=== PATIENT | male | born 1970 | race Two or more races ===

== ENCOUNTER 2023-04-28 18:50 | Emergency (ER) | payer BC ==
[2023-04-28] MEDS ORDERED: Morphine 4 MG/ML VIAL ONE (20:27)
[2023-04-28] MEDS ORDERED: CEFAZOLIN 2 GM VIAL ONE (20:28)
[2023-04-28] MEDS ORDERED: Ondansetron PF 4 MG/2 ML Vial ONE (20:28)
[2023-04-28] MEDS ORDERED: Lidocaine 1% w/Epinephrine 1:200K 30 ML VIAL ONE (20:59)
== END 2023-04-28 22:43 | disposition home or self-care (01) ==
LOC: CSHERS 18:50
DX: S01.81XA Laceration without foreign body of other part of head, initial encounter (principal); V87.8XXA Person injured in other specified noncollision transport accidents involving motor vehicle (traffic), initial encounter; Z23 Encounter for immunization
CPT/HCPCS: 12053; 70450; 70486; 72125; 90471; 96374; 96375; J2270; J2405

== ENCOUNTER 2023-05-03 18:03 | Emergency (ER) | payer BC, OTHER | END 2023-05-03 19:53 | disposition home or self-care (01) | LOC: CSHERS 18:03 | DX: S01.81XD Laceration without foreign body of other part of head, subsequent encounter (principal); V89.2XXD Person injured in unspecified motor-vehicle accident, traffic, subsequent encounter ==